=== PATIENT | female | born 1960 | race African-American/Black ===

== ENCOUNTER 2016-09-18 16:19 | Emergency (ER) | payer OTHER ==
[~2016-09-18] VITALS: Ht 160 cm; Wt 68.0 kg
[2016-09-18] MEDS ORDERED: SODIUM CHLORIDE 0.9% 1,000 ML IVB ONE (16:34)
[2016-09-18 17:39] VITALS: BP 102/56
[2016-09-18 17:47] LABS: DEFINITIVE VIEW TRANSMISSION; Hematocrit 24.1 % (36.0-46.0); Hemoglobin 7.5 g/dL (12.2-16.2); Mean Corpuscular Hemoglobin 19.9 pg (28.0-32.0); Mean Corpuscular Hgb Conc. 31.1 g/dL (32.0-36.0); Mean Platelet Volume 9.4 fL (7.4-10.4); Platelet Count (auto) 399 10^3/uL (140-450); White Blood Cell 3.6 10^3/uL (4.4-10.8)
[2016-09-18 17:54] LABS: Red Cell Distribution Width 22.3 % (11.6-16.0)
[2016-09-18 17:56] LABS: Metamyelocytes % 0; Myelocytes % 0; Promyelocytes % 0; Reactive Lymphocytes 0
[2016-09-18 18:09] LABS: Albumin 2.8 g/dL (3.4-5.0); BUN/Creatinine Ratio 16.3; Bilirubin, Total 0.7 mg/dL (0.2-1.0); Magnesium 2.1 mg/dL (1.6-2.6); Total Protein 6.7 g/dL (6.4-8.2)
[2016-09-18 18:22] LABS: Anisocytosis Moderate; Hypochromia Marked; Microcytosis Marked; Platelet Estimate Adequate
[2016-09-18 18:23] LABS: Giant Platelets Few
[2016-09-18] MEDS ORDERED: POTASSIUM CHL 20 Meq TABLET PO ONE (18:45)
== END 2016-09-18 19:06 | disposition home or self-care (01) ==
LOC: ER 16:24
DX: R55 Syncope and collapse (principal); D64.9 Anemia, unspecified; J45.909 Unspecified asthma, uncomplicated; I10 Essential (primary) hypertension; F12.10 Cannabis abuse, uncomplicated; G40.909 Epilepsy, unspecified, not intractable, without status epilepticus
CPT/HCPCS: 36415; 70450; 80053; 80320; 83735; 84484; 85007; 85027; 94761; 96360; 96361; 99285; J7030